=== PATIENT | female | born 1990 | race American Indian/Alaskan Native ===

== ENCOUNTER 2018-08-06 20:08 | Emergency (ER) | payer SELFPAY ==
[2018-08-06 20:19] VITALS: BP 139/91
--- NOTE | 2018-08-06 20:40 | Emergency Department Report ---
Blank Doc - Documentation Documentation: C/O SOB and CP constant no radiation. Having cold like symptom. Chills and sw eats. LMP 08/01/18 G2 Pc. Tubal ligation. This initial assessment diagnostic orders/clinical plan/treatment (s) is/Are subject change based on patient's health status, clinical progression and re-as sessment by fellow clinical providers in the ED. Further treatment and work-up at subsequent clinical providers discretion. Patient/guardians urged not to elope from s their condition may be serious if not clinically assessed and managed. Inital order include:
--- NOTE | 2018-08-06 21:25 | XRay Report ---
FINAL REPORT PROCEDURE: XR CHEST ROUTINE 2V TECHNIQUE: PA and lateral chest radiographs were obtained. CPT 95041 HISTORY: SOB and cough COMPARISON: No prior studies are available for comparison. FINDINGS: Heart: Normal. Mediastinum/Vessels: Normal. Lungs/Pleural space: Normal. Bony thorax: No acute osseous abnormality. Other: IMPRESSION: Normal examination.
[2018-08-06] MEDS ORDERED: DELTASONE PO STA (23:20)
[2018-08-06] MEDS ORDERED: PROVENTIL IH ONE (23:20)
== END 2018-08-07 00:21 | disposition home or self-care (01) ==
LOC: ED 20:08
DX: R06.00 Dyspnea, unspecified (principal); Z53.21 Procedure and treatment not carried out due to patient leaving prior to being seen by health care provider
CPT/HCPCS: 71046; J7512